=== PATIENT | female | born 1940 | race Caucasian/White ===

== ENCOUNTER 2018-09-22 07:13 | Day surgery (SDC) | payer MEDICARE, SELFPAY ==
[2018-09-22] MEDS: PROPARACAINE 0.5% OPHTH SOL 2 DROPS EYE-OP (07:53)
[2018-09-22 07:54] VITALS: BP 179/84; PULSE 67; RESP 16; TEMP 36.3; O2SAT 99; BMI 28.3
[2018-09-22] MEDS: CATARACT EYE COMPOUND (10 DROPS/SYRINGE) 3 DROPS EYE-OP (07:55)
--- NOTE | 2018-09-22 08:32 | PM.PREOP ---
Pre-operative Note Interval Note History & Physical reviewed/Exam performed by Physician: Yes Changes to H&P: No
[2018-09-22] MEDS: BALANCED SALT IRRIG SOLN NO.2 15 ML IRR (09:08)
[2018-09-22] MEDS: MOXIFLOXACIN OPHTH DROPS 3 ML BOTTLE 2 DROPS INJ (09:09)
[2018-09-22] MEDS: PHENYLEPHRINE/LIDOCAINE VIAL (OR) 0.2 ML EYE-OP (09:09)
[2018-09-22] MEDS: CHONDROIDTIN/SOD HYALURONATE 1.05 ML SYRINGE INTRAOCULA (09:09)
[2018-09-22] MEDS: BALANCED SALT IRRIG SOLN NO.2 500 ML, EPINEPHrine 1 MG IRR (09:10)
[2018-09-22] MEDS: TETRACAINE 0.5% OPHTH DROPS 4 ML 2 DROPS EYE-OP (09:10)
[2018-09-22] MEDS: LIDOCAINE 2% INJ SDV 0.5 ML TOP (09:12)
--- NOTE | 2018-09-22 09:27 | P.OP_ITS ---
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 The correct patient, surgical site and lens were confirmed. 0.5 % tetracaine drops were placed in the left eye. The patient was prepped and draped in the typical ster ile manner. A lid speculum was placed in the eye. 2% lidocaine was placed on the eye. A paracentesis port was created with a side-port blade. 0.1 mL of 1% preservative free lidocaine with phenylephrine was injected into the anterior chamber. Viscoelastic was injected into the anterior chamber. A 2.6mm keratome was used to create a clear corneal temporal incision. Cystotome and Utrata forceps were used to create a continuous curvilinear capsulorrhexis. Balanced salt solution was used to hydrodissect the nucleus. Phacoemulsification was used to remove the lens. The capsular bag was inflated with viscoelastic. A Johnson ZBOO +14.0D lens was inserted into the capsule. Viscoelastic was removed and the wound hydrated. The wound was found to be leak free and the eye was assessed to be at normal physiologic pressure. 0.1mL Vigamox was injected into the anterior chamber. The lid speculum was removed and the patient left the operating room in excellent condition. Complications: none Condition: stable Disposition: same day surgery
[2018-09-22 09:36] VITALS: BP 151/90; PULSE 58; RESP 16; TEMP 36.2; O2SAT 98
== END 2018-09-22 09:48 | disposition home or self-care (01) ==
LOC: OR 07:15
PROVIDERS: PCP Family Medicine; Visit Provider Ophthalmology
PROC: (CPT 66984; principal; 2018-09-22 08:45)
DX: H25.12 Age-related nuclear cataract, left eye (principal)
CPT/HCPCS: 66984; J0171; J2250; J3010

== ENCOUNTER 2018-10-06 10:22 | Day surgery (SDC) | payer MEDICARE, SELFPAY ==
[2018-10-06 11:15] VITALS: BP 174/91; PULSE 57; RESP 16; TEMP 36.9; O2SAT 98
[2018-10-06 11:16] VITALS: BMI 32.1
[2018-10-06 11:26] VITALS: BMI 32.1
--- NOTE | 2018-10-06 11:34 | PM.PREOP ---
Pre-operative Note Interval Note History & Physical reviewed/Exam performed by Physician: Yes Changes to H&P: No
[2018-10-06] MEDS: PROPARACAINE 0.5% OPHTH SOL 2 DROPS EYE-OP (11:38)
[2018-10-06] MEDS: CATARACT EYE COMPOUND (10 DROPS/SYRINGE) 3 DROPS EYE-OP (11:42)
[2018-10-06] MEDS: BALANCED SALT IRRIG SOLN NO.2 15 ML IRR (13:10)
[2018-10-06] MEDS: CHONDROIDTIN/SOD HYALURONATE 1.05 ML SYRINGE INTRAOCULA (13:10)
[2018-10-06] MEDS: MOXIFLOXACIN OPHTH DROPS 3 ML BOTTLE 2 DROPS INJ (13:10)
[2018-10-06] MEDS: PHENYLEPHRINE/LIDOCAINE VIAL (OR) 0.2 ML EYE-OP (13:11)
[2018-10-06] MEDS: BALANCED SALT IRRIG SOLN NO.2 500 ML, EPINEPHrine 1 MG IRR (13:13)
[2018-10-06] MEDS: TETRACAINE 0.5% OPHTH DROPS 4 ML 2 DROPS EYE-OP (13:13)
[2018-10-06] MEDS: LIDOCAINE 2% INJ SDV 0.5 ML TOP (13:15)
--- NOTE | 2018-10-06 13:39 | PM.OP.1 ---
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 The correct patient, surgical site and lens were confirmed. 0.5 % tetracaine drops were placed in the right eye. The patient was prepped and draped in the typical sterile manner. A lid speculum was placed in the eye. 2% lidocaine was placed on the eye. A paracentesis port was created with a side-port blade. 0.1 mL of 1% preservative free lidocaine with phenylephrine was injected into the anterior chamber. Viscoelastic was injected into the anterior chamber. A 2.6mm keratome was used to create a clear corneal temporal incision. Cystotome and Utrata forceps were used to create a continuous curvilinear capsulorrhexis. Balanced salt solution was used to hydrodissect the nucleus. Phacoemulsification was used to remove the lens. The capsular bag was inflated with viscoelastic. A Johnson ZBOO +15.0D lens was inserted into the capsule. Viscoelastic was removed and the wound hydrated. The wound was found to be leak free and the eye was assessed to be at normal physiologic pressure. 0.1mL Vigamox was injected into the anterior chamber. The lid speculum was removed and the patient left the operating room in excellent condition. Complications: none Condition: stable Disposition: same day surgery
[2018-10-06 13:51] VITALS: BP 147/76; PULSE 53; RESP 15; TEMP 36.1; O2SAT 100
== END 2018-10-06 14:06 ==
LOC: OR 10:23
PROVIDERS: PCP Family Medicine; Visit Provider Ophthalmology
PROC: (CPT 66984; principal; 2018-10-06 12:30)
DX: H25.11 Age-related nuclear cataract, right eye (principal)
CPT/HCPCS: 66984; J0171; J2250; J3010

== ENCOUNTER → 2019-01-17 09:56 | Outpatient (CLI) | payer MEDICARE, SELFPAY | PROVIDERS: PCP Family Medicine; Visit Provider Ophthalmology | DX: H10.33 Unspecified acute conjunctivitis, bilateral (principal) | CPT/HCPCS: 87070; 87205 ==

== ENCOUNTER 2019-02-02 08:24 | Day surgery (SDC) | payer MEDICARE, SELFPAY ==
[2019-02-02 08:47] VITALS: BMI 29.2
[2019-02-02] MEDS: PROPARACAINE 0.5% OPHTH SOL 2 DROPS EYE-OP (08:53)
[2019-02-02 08:55] VITALS: BP 146/92; PULSE 65; RESP 17; TEMP 36.9; O2SAT 98
[2019-02-02] MEDS: PILOCARPINE 1% 1 DROPS EYE-OP (09:08)
--- NOTE | 2019-02-02 09:46 | PM.PREOP ---
Pre-operative Note Interval Note History & Physical reviewed/Exam performed by Physician: Yes Changes to H&P: No
[2019-02-02] MEDS: MOXIFLOXACIN INJ 5 MG/ML VIAL EYE-OP (10:14)
[2019-02-02] MEDS: BALANCED SALT IRRIG SOLN NO.2 15 ML 5 ML IRR (10:15)
[2019-02-02] MEDS: TETRACAINE 0.5% OPHTH DROPS 4 ML 2 DROPS EYE-OP (10:15)
[2019-02-02] MEDS: LIDOCAINE 2% INJ SDV 2 ML INJ (10:15)
[2019-02-02] MEDS: BALANCED SALT IRRIG SOLN NO.2 500 ML, EPINEPHrine 1 MG IRR (10:16)
[2019-02-02] MEDS: HYALURONATE SODIUM 10 MG/ML SYRINGE INJ (10:17)
[2019-02-02] MEDS: CHONDROIDTIN/SOD HYALURONATE 1.05 ML SYRINGE INTRAOCULA (10:26)
--- NOTE | 2019-02-02 10:47 | PM.OP.1 ---
Procedure & Clinicians Procedure: Lens fragment removal, right eye Same procedure as scheduled: Yes Indications: Retained lens fragment, right eye Surgeon: Efrain Mehta Anesthesia Type: MAC +/- Operative Notes Procedure in detail: The patient was brought to the operating suite. The correct patient, surgical site and lens were confirmed. 0.5 % tetracaine drops were placed in the right eye. The patient was prepped and draped in the typical sterile manner. A lid speculum was placed in the eye. 2% lidocaine was placed on the eye. Two paracentesis ports was created with a side-port blade at 11 o'clock and 7 o'clock. 0.1 mL of 1% preservative free lidocaine was injected into the anterior chamber. Provisc was injected into the anterior chamber. The inferior angle was deepened and the lens fragment was moved into the center of the anterior chamber with provisc. Bi-manual I\A was used to remove the entire lens fragment. The angle was swept 360 degrees with bi-maunal I\A no other lens fragments were appreciated. Provisc was removed with bi-maunal I/A. The wound was found to be leak free and the eye was assessed to be at normal physiologic pressure. 0.1mL Vigamox was injected into the anterior chamber. The lid speculum was removed and the patient left the operating room in excellent condition. Complications: none Post-operative Condition: stable Disposition: same day surgery
[2019-02-02 10:55] VITALS: BP 168/88; PULSE 56; RESP 16; TEMP 36.5; O2SAT 98
== END 2019-02-02 11:10 | disposition home or self-care (01) ==
LOC: OR 08:26
PROVIDERS: PCP Family Medicine; Visit Provider Ophthalmology
PROC: (CPT 65235; principal; 2019-02-02 09:15)
DX: Z18.89 Other specified retained foreign body fragments (principal); H40.1111 Primary open-angle glaucoma, right eye, mild stage
CPT/HCPCS: 65235; J0171; J2250; J2704